=== PATIENT | male | born 1985 | race Caucasian/White ===

== ENCOUNTER 2016-09-22 11:31 | Emergency (ER) | payer SELFPAY ==
[~2016-09-22] VITALS: Ht 175.3 cm; Wt 104.0 kg
[~2016-09-22 11:31] MED LIST: BACT800T5 PO
[2016-09-22 11:39] VITALS: BP 147/93; PULSE 92; RESP 16; TEMP 98.7; O2SAT 100
--- NOTE | 2016-09-22 12:28 | PD ---
HPI Chief Complaint: Complaint Time Seen by Provider: 12:27 (Page Callahan) Time Seen by Provider: 12:04 (Anthony Amanda MD) Travel History International Travel<30 days: No Contact w/Intl Traveler<30days: No Traveled to known affect area: No (Page Callahan) History of Present Illness HPI Patient is a 31-year-old male presenting to the emergency department for evaluation of a possible torn frenulum. Patient states he was having intercourse this morning, resulting in bleeding on the tip of his penis. He states it's sore, tender. He denies any other complaints at this time. (Page Callahan) [facility] Past Medical History Medical History: Denies Significant Hx (Page Callahan) Past Surgical History Eye Surgery: Yes (lazy eye correction) (Page Callahan) Social History Alcohol Use: Yes (occas.) Tobacco Use: No (denies recent use states hx of states quit) Substance Use: No (Page Callahan) Allergies-Medications (Allergen,Severity, Reaction): Coded Allergies: No Known Allergies (Unverified , 09/22/16) Reported Meds & Prescriptions Reported Meds & Active Scripts Active Lidocaine Topical (Lidocaine HCl) 2 % Jel 1 Applic TOPICAL BID PRN Nystatin Topical 100,000 unit/gm Oint 1 Applic TOPICAL Q12HR (Anthony Amanda MD) Review of Systems Except as stated in HPI: all other systems reviewed are Neg Musculoskeletal: Positive: Pain Skin: Positive Other (bleeding to tip of penis) (Page Callahan) Physical Exam Narrative GENERAL: Well-nourished, well-developed patient. SKIN: Warm and dry. HEAD: Normocephalic. EYES: No scleral icterus. No injection or drainage. NECK: Supple, trachea midline. No JVD or lymphadenopathy. CARDIOVASCULAR: Regular rate and rhythm without murmurs, gallops, or rubs. RESPIRATORY: Breath sounds equal bilaterally. No accessory muscle use. GASTROINTESTINAL: Abdomen soft, non-tender, nondistended. MUSCULOSKELETAL: No cyanosis, or edema. GENITOURINARY: Uncircumcised, bleeding noted to the frenulum. Testes descended bilaterally without evidence of rotation. No urethral discharge. Foreskin retracts easily. BACK: Nontender without obvious deformity. No CVA tenderness. (Page Callahan) Data Data Last Documented VS Vital Signs Date Time Temp Pulse Resp B/P Pulse Ox O2 Delivery O2 Flow Rate FiO2 09/22/16 11:39 98.7 92 16 147/93 100 (Anthony Amanda MD) Orders Mandatory Outpatient Referral (09/22/16 12:56) (Anthony Amanda MD) [facility] Medical Decision Making Medical Screen Exam Complete: Yes Emergency Medical Condition: Yes Interpretation(s) Vital Signs Date Time Temp Pulse Resp B/P Pulse Ox O2 Delivery O2 Flow Rate FiO2 09/22/16 11:39 98.7 92 16 147/93 100 Differential Diagnosis Torn frenulum versus STD versus urinary tract infection versus other Narrative Course Patient is a 31-year-old male presenting to emergency department for evaluation of a torn frenulum. Injury occurred as result of intercourse this morning. Patient was seen and evaluated by my attending physician recommended lidocaine topically for pain as well as nystatin cream. Mandatory referral was made for urology follow-up. Patient was encouraged return to emergency department for any new or worsening symptoms. Patient stable for discharge. (Page Callahan) Emergency Medical Condition: Yes (Anthony Amanda MD) Diagnosis Primary Impression: Penis symptom or sign Referrals: Urologist Patient Instructions: General Instructions Additional Instructions: Follow-up with urologist Use medications as directed Returned to emergency department for any new or worsening symptoms Med/Other Pt SpecificInfo: Prescription(s) given (Page Callahan) Scripts Lidocaine Topical 2 % Jel1 Applic TOPICAL BID PRN (PAIN SCALE 1 TO 10) #15 GM Ref 0 Prov:Page Callahan 09/22/16 Nystatin Topical 100,000 unit/gm Oint1 Applic TOPICAL Q12HR #15 GM Ref 0 Prov:Page Callahan 09/22/16 Disposition: 01 DISCHARGE HOME Condition: Stable Page Callahan Sep 22, 2016 12:28 Anthony Amanda MD Sep 22, 2016 13:25
[2016-09-22] MEDS ORDERED: NYST100084 TOPICAL (12:55)
[2016-09-22] MEDS ORDERED: LIDO2GEL11 TOPICAL (12:55)
--- NOTE | 2016-09-22 17:47 | PD ---
Data Data Last Documented VS Vital Signs Date Time Temp Pulse Resp B/P Pulse Ox O2 Delivery O2 Flow Rate FiO2 09/22/16 11:39 98.7 92 16 147/93 100 Orders Mandatory Outpatient Referral (09/22/16 12:56) [facility] Supervised Visit with BERRY: Yes Narrative Course Patient seen and examined by me in addition to Page BINGHAM. Patient has unimpressive abrasion to the frenulum of the penis. There is an uncircumcised penis with foul smelling shmegma as well. No cellulitis appreciated. Discussed with patient symptomatic control and treatment. Discussed follow up with a urologist at his discretion and return to ED criteria. Stable for discharge. Diagnosis Primary Impression: Penis symptom or sign Referrals: Urologist call for appointment Patient Instructions: General Instructions Departure Forms: Tests/Procedures Additional Instruction: Follow-up with urologist Use medications as directed Returned to emergency department for any new or worsening symptoms Scripts Lidocaine Topical 2 % Jel1 Applic TOPICAL BID PRN (PAIN SCALE 1 TO 10) #15 GM Ref 0 Prov:Page Callahan 09/22/16 Nystatin Topical 100,000 unit/gm Oint1 Applic TOPICAL Q12HR #15 GM Ref 0 Prov:Page Callahan 09/22/16 Disposition: 01 DISCHARGE HOME Condition: Stable Anthony Amanda MD Sep 22, 2016 17:47
== END 2016-09-22 13:10 | disposition home or self-care (01) ==
LOC: PHED 11:31 → PHEFT 13:10
DX: S31.21XA Laceration without foreign body of penis, initial encounter (principal); X58.XXXA Exposure to other specified factors, initial encounter; Y93.89 Activity, other specified
CPT/HCPCS: 99283

== ENCOUNTER 2016-11-09 01:00 | Emergency (ER) | payer SELFPAY ==
[~2016-11-09] VITALS: Ht 175.3 cm; Wt 103.0 kg
[~2016-11-09 01:00] MED LIST changes: -BACT800T5 PO; +LIDO2GEL11 TOPICAL; +NYST100084 TOPICAL
[2016-11-09 01:10] VITALS: BP 159/81; PULSE 81; RESP 18; TEMP 98.2; O2SAT 97
[2016-11-09 01:43] LABS: AUTOMATED NEUTROPHIL # 11.3 TH/MM3 (1.8-7.7); BASOPHIL # 0.1 TH/MM3 (0-0.2); BASOPHIL % 0.6 % (0.0-2.0); EOSINOPHIL # 0.1 TH/MM3 (0-0.4); EOSINOPHIL % 0.8 % (0.0-4.0); HEMATOCRIT 42.2 % (39.0-51.0); HEMO FLAGS DIFF FINAL; LYMPH % 15.8 % (9.0-44.0); LYMPHOCYTE # 2.2 TH/MM3 (1.0-4.8); MEAN CELL VOLUME 82.4 FL (80.0-100.0); MEAN CORPUSCULAR HEMOGLOBIN 28.2 PG (27.0-34.0); MEAN CORPUSCULAR HGB CONC 34.2 % (32.0-36.0); MONO % 3.6 % (0.0-8.0); NEUT % 79.2 % (16.0-70.0); PLATELET COUNT 259 TH/MM3 (150-450); RED BLOOD COUNT 5.13 MIL/MM3 (4.50-5.90); RED CELL DISTRIBUTION WIDTH 13.3 % (11.6-17.2); WHITE BLOOD COUNT 14.2 TH/MM3 (4.0-11.0)
[2016-11-09 02:03] LABS: ALKALINE PHOSPHATASE 83 U/L (45-117); TOTAL BILIRUBIN ADULT 0.3 MG/DL (0.2-1.0)
[2016-11-09 02:10] LABS: ALT (GPT) 31 U/L (12-78); ANION GAP 8 MEQ/L (5-15); AST (GOT) 37 U/L (15-37); BICARBONATE 24.9 MEQ/L (21.0-32.0); BLOOD UREA NITROGEN 17 MG/DL (7-18); CHLORIDE 104 MEQ/L (98-107); GLOMERULAR FILTRATION RATE 90 ML/MIN (>89); POTASSIUM 3.2 MEQ/L (3.5-5.1); SODIUM (NA) 137 MEQ/L (136-145)
--- NOTE | 2016-11-09 02:10 | RADRPT ---
EXAM DATE/TIME: 11/09/2016 01:45 [facility] COMPARISON: No previous studies available for comparison. INDICATIONS : Abdominal pain. MEDICAL HISTORY : None. SURGICAL HISTORY : None. ENCOUNTER: Initial ACUITY: 1 day PAIN SCORE: 0/10 LOCATION: Bilateral chest FINDINGS: A single view of the chest demonstrates the lungs to be symmetrically aerated without evidence of mas s, infiltrate or effusion. The cardiomediastinal contours are unremarkable. Osseous structures are intact. CONCLUSION: No acute disease. Elvis Cazares MD on November 09, 2016 at 2:08 Board Certified Radiologist. This report was verified electronically.
[2016-11-09] MEDS ORDERED: IOHEXOL 350 MG/ML 10 ML VIAL (for RAD DIAG) IV ONE (02:37)
[2016-11-09 02:57] LABS: BLOOD, URINE NEG (NEG); GLUCOSE,URINE NEG (NEG); KETONE, URINE NEG (NEG); NITRITE,URINE NEG (NEG); PH, URINE 6.5 (5.0-8.5); URINE COLOR LIGHT-YELLOW (YELLW/STRAW)
[2016-11-09 03:02] LABS: COMMENT (UR) CULT NOT INDICATED; CULTURE IF INDICATED CULT NOT INDICATED
[2016-11-09] MEDS ORDERED: POTASSIUM CHLORIDE 20 MEQ CONTROLLED RELEASE TAB PO ONE (03:15)
[2016-11-09] MEDS ORDERED: ONDANSETRON HCL 4 MG/2 ML VIAL IV ONE (03:15)
[2016-11-09] MEDS ORDERED: SODIUM CHLOR 0.9% 1000 ML INJ 1,000 ML IV ONE (03:15)
--- NOTE | 2016-11-09 03:29 | RADRPT ---
EXAM DATE/TIME: 11/09/2016 02:35 [facility] COMPARISON: No previous studies available for comparison. INDICATIONS : Lower abdominal pain starting tonight. IV CONTRAST: 83 cc Omnipaque 350 (iohexol) IV ORAL CONTRAST: No oral contrast ingested. RADIATION DOSE: 14.48 CTDIvol (mGy) MEDICAL HISTORY : None SURGICAL HISTORY : None. ENCOUNTER: Initial ACUITY: 1 day PAIN SCALE: 7/10 LOCATION: abdomen TECHNIQUE: Volumetric scanning of the abdomen and pelvis was performed. Using automated exposure control and ad justment of the mA and/or kV according to patient size, radiation dose was kept as low as reasonably achievable to obtain optimal diagnostic quality images. FINDINGS: LOWER LUNGS: The visualized lower lungs are clear. LIVER: Homogeneous density without lesion. There is no dilation of the biliary tree. There are small calcif ied gallstones. SPLEEN: Normal size without lesion. PANCREAS: Within normal limits. KIDNEYS: Normal in size and shape. There is no mass, stone or hydronephrosis. ADRENAL GLANDS: Within normal limits. VASCULAR: There is no aortic aneurysm. BOWEL/MESENTERY: The stomach, small bowel, and colon demonstrate no acute abnormality. There is nondistention of the d escending and sigmoid colon. There is no free intraperitoneal air or fluid. ABDOMINAL WALL: Within normal limits. RETROPERITONEUM: There is no lymphadenopathy. BLADDER: No wall thickening or mass. REPRODUCTIVE: Within normal limits. INGUINAL: There is no lymphadenopathy or hernia. MUSCULOSKELETAL: Within normal limits for patient age. CONCLUSION: 1. Cholelithiasis. 2. No acute inflammatory process. Elvis Cazares MD on November 09, 2016 at 3:25 Board Certified Radiologist. This report was verified electronically.
--- NOTE | 2016-11-09 03:37 | PD ---
HPI Chief Complaint: Abdominal Pain Time Seen by Provider: 01:28 Travel History International Travel<30 days: No Contact w/Intl Traveler<30days: No Traveled to known affect area: No History of Present Illness HPI The patient is a 31 year old male who presents to the [facility] emergency department with a history of abdominal pain that began when he was lying down trying to go to bed. He reports that it began at the lower portion of the abdomen and then radiated up to underneath the rib cage bilaterally. He reports that it hurts worse to take a deep breath. He reports that it hurts worse to straighten up to stand. He denies having any nausea, vomiting, or diarrhea associated with this. He reports that his last bowel movement was at 10 PM and normal. He denies having any blood in his stool or black or tarry stools. He reports that the pain has improved since arriving in the emergency department. He denies having any chest pain, chest pressure, or shortness of breath. He denies having any cough or congestion. He denies having any dysuria , hematuria, urinary urgency, or frequency. He denies having any sick contacts. He denies having any recent acid reflux or heartburn. The patient denies any recent fevers, cough, congestion, neck pain, or neurologic symptoms. [facility] Past Medical History Narrative Medical The patient's past medical history is reportedly none. Medical History: Denies Significant Hx Tetanus Vaccination: > 5 Years Influenza Vaccination: No Past Surgical History Narrative Surgical The patient's past surgical history is significant for strabismus surgery. Eye Surgery: Yes (lazy eye correction) Social History Alcohol Use: Yes (occas.) Tobacco Use: No (denies recent use states hx of states quit) Substance Use: No Allergies-Medications (Allergen,Severity, Reaction): Coded Allergies: No Known Allergies (Unverified , 11/09/16) Reported Meds & Prescriptions Reported Meds & Active Scripts Active No Active Prescriptions or Reported Medications Review of Systems Except as stated in HPI: all other systems reviewed are Neg General / Constitutional: No: Fever Eyes: No: Visual changes HENT: No: Headaches, Congestion Cardiovascular: No: Chest Pain or Discomfort, Dyspnea on exertion Respiratory: No: Cough, Shortness of Breath Gastrointestinal: Positive: Abdominal Pain, No: Nausea, Vomiting, Diarrhea, Constipation, Changes in Bowel Habits, Indigestion Genitourinary: No: Dysuria Musculoskeletal: No: Pain Skin: No Rash Neurologic: No: Weakness Psychiatric: No: Depression Endocrine: No: Polydipsia Hematologic/Lymphatic: No: Easy Bruising Physical Exam Narrative General: The patient is a well-developed well-nourished male in no acute distress. Head and Neck exam: Head is normocephalic atraumatic. Eyes: EOMI, pupils are equal round and reactive to light. Nose: Midline septum with pink mucous membranes Mouth: Dentition unremarkable. Moist mucus membranes. Posterior oropharynx is not erythematous. No tonsillar hypertrophy. Uvula midline. Airway patent. Neck: No palpable lymphadenopathy. No nuchal rigidity. No thyromegaly. Cardiovascular: Regular rate and rhythm without murmurs, gallops, or rubs. Lungs: Clear to auscultation bilaterally. No wheezes, rhonchi, or rales. Abdomen: Soft, without tenderness to palpation in all 4 quadrants of the abdomen. No guarding, rebound, or rigidity. Normal bowel sounds are audible. No tenderness on palpation of McBurney's point. Negative Turner's sign. The patient reports that the pain has improved since arriving in the emergency department. Extremities: No clubbing, cyanosis, or edema. No calf tenderness on palpation. Back: No spinous process tenderness to palpation. No costovertebral angle tenderness to palpation. Neurologic Exam: Grossly nonfocal. Skin Exam: No rash noted. Intact skin that is warm and dry. Data Data Last Documented VS Vital Signs Date Time Temp Pulse Resp B/P Pulse Ox O2 Delivery O2 Flow Rate FiO2 11/09/16 01:10 98.2 81 18 159/81 97 Orders Complete Blood Count With Diff (11/09/16:28) Comprehensive Metabolic Panel (11/09/16:28) C-Reactive Protein (Crp) (11/09/16:28) Lipase (11/09/16:28) Urinalysis - C+S If Indicated (11/09/16:28) Westergren Sedimentation Rate (11/09/16:28) Chest, Single Ap (11/09/16:28) Ct Abd/Pel W Iv Contrast(Rout) (11/09/16:28) Iv Access Insert/Monitor (3/27/17 01:28) Ecg Monitoring (11/09/16 01:28) Oximetry (11/09/16 01:28) Iohexol 350 Inj (Omnipaque 350 Inj) (11/09/16 02:37) Sodium Chlor 0.9% 1000 Ml Inj (Ns 1000 M (11/09/16 03:15) Ondansetron Inj (Zofran Inj) (11/09/16 03:15) Potassium Chloride (Kcl) (11/09/16 03:15) Labs Laboratory Tests Test 11/09/16 11/09/16 01:15 02:40 White Blood Count 14.2 TH/MM3 Red Blood Count 5.13 MIL/MM3 Hemoglobin 14.4 GM/DL Hematocrit 42.2 % Mean Corpuscular Volume 82.4 FL Mean Corpuscular Hemoglobin 28.2 PG Mean Corpuscular Hemoglobin 34.2 % Concent Red Cell Distribution Width 13.3 % Platelet Count 259 TH/MM3 Mean Platelet Volume 8.5 FL Neutrophils (%) (Auto) 79.2 % Lymphocytes (%) (Auto) 15.8 % Monocytes (%) (Auto) 3.6 % Eosinophils (%) (Auto) 0.8 % Basophils (%) (Auto) 0.6 % Neutrophils # (Auto) 11.3 TH/MM3 Lymphocytes # (Auto) 2.2 TH/MM3 Monocytes # (Auto) 0.5 TH/MM3 Eosinophils # (Auto) 0.1 TH/MM3 Basophils # (Auto) 0.1 TH/MM3 CBC Comment DIFF FINAL Differential Comment Erythrocyte Sedimentation Rate 2 mm/hr Sodium Level 137 MEQ/L Potassium Level 3.2 MEQ/L Chloride Level 104 MEQ/L Carbon Dioxide Level 24.9 MEQ/L Anion Gap 8 MEQ/L Blood Urea Nitrogen 17 MG/DL Creatinine 0.97 MG/DL Estimat Glomerular Filtration 90 ML/MIN Rate Random Glucose 131 MG/DL Calcium Level 8.6 MG/DL Total Bilirubin 0.3 MG/DL Aspartate Amino Transf 37 U/L (AST/SGOT) Alanine Aminotransferase 31 U/L (ALT/SGPT) Alkaline Phosphatase 83 U/L C-Reactive Protein 0.60 MG/DL Total Protein 7.1 GM/DL Albumin 4.0 GM/DL Lipase 284 U/L Urine Color LIGHT-YELLOW Urine Turbidity CLEAR Urine pH 6.5 Urine Specific [place] 1.015 Urine Protein NEG mg/dL Urine Glucose (UA) NEG mg/dL Urine Ketones NEG mg/dL Urine Occult Blood NEG Urine Nitrite NEG Urine Bilirubin NEG Urine Urobilinogen LESS THAN 2.0 MG/DL Urine Leukocyte Esterase NEG Urine RBC LESS THAN 1 /hpf Urine WBC 1 /hpf Microscopic Urinalysis Comment CULT NOT INDICATED MDM Medical Decision Making Medical Screen Exam Complete: Yes Emergency Medical Condition: Yes Medical Record Reviewed: Yes Differential Diagnosis Colonic spasms, versus colitis, versus gastroenteritis, versus viral syndrome, versus acute pancreatitis, versus biliary colic, versus kidney stone Narrative Course During the course of the patients emergency department visit, the patients history, examination, and differential diagnosis were reviewed with the patient. The patient had IV access obtained and blood work sent for analysis. The patient was placed on a iv therapy nurse with oximetry and blood pressure monitoring. The patient was provided normal saline 1 L IV fluid bolus, Zofran 4 mg IV 1, potassium 21 by mouth times one 1 mild hypokalemia was noted on laboratory studies. The patients laboratory studies were reviewed and remarkable for a CBC that shows a white count of 14.2, hemoglobin 14.4, platelets 259 with 79.2 neutrophils, sedimentation rate is 2, CMP is remarkable for potassium of 3.2, glucose 131, C-reactive protein 0.60, lipase, urinalysis is within normal limits. Radiology studies were reviewed and remarkable for a chest x-ray that shows no acute abnormality. CT scan of the abdomen and pelvis shows cholelithiasis, no acute inflammatory process. The patient was instructed regarding his CT scan findings. The patient's symptoms could be related to biliary colic as the symptoms seemed to have resolved. The patient will be given the name of the general surgeon for follow-up, . The patient is resting comfortably and feels better, is alert and in no distress. The patients results and examination findings were discussed with the patient. The repeat examination is unremarkable and benign. The history, exam, diagnostic testing, and current condition do not suggest any significant pathology to warrant further testing, continued ED treatment, admission, or surgical evaluation at this point. The vital signs have been stable. The patient does not have uncontrollable pain, intractable vomiting, or other significant symptoms. The patient's condition is stable and appropriate for discharge. The patient will pursue further outpatient evaluation with a primary care physician or other designated or consulting physician as indicated in the discharge instructions. The patient expressed understanding and was agreeable with this plan. Diagnosis Primary Impression: Abdominal pain Qualified Code: R10.84 - Generalized abdominal pain Additional Impression: Cholelithiasis Qualified Code: K80.20 - Calculus of gallbladder without cholecystitis without obstruction Referrals: Mason Pruitt MD 3 days Patient Instructions: Abdominal Pain (ED), Biliary Colic (ED), General Instructions Med/Other Pt SpecificInfo: No Meds Exist/No RX given Scripts No Active Prescriptions or Reported Meds Disposition: 01 DISCHARGE HOME Condition: Michelle Etienne MD Nov 09, 2016 03:37
== END 2016-11-09 04:47 | disposition home or self-care (01) ==
LOC: NEPE 01:00
DX: K80.20 Calculus of gallbladder without cholecystitis without obstruction (principal)
CPT/HCPCS: 71010; 74177; 80053; 81001; 83690; 85025; 85652; 86140; 96374; 99284; J2405; J7030; Q9967

== ENCOUNTER 2016-11-11 20:41 | Inpatient (IN) | payer SELFPAY ==
[~2016-11-11] VITALS: Ht 175.3 cm; Wt 100.9 kg
[2016-11-11 20:43] VITALS: BP 132/73; PULSE 73; RESP 16; TEMP 97.8; O2SAT 100
[2016-11-11 22:51] LABS: AUTOMATED NEUTROPHIL # 6.2 TH/MM3 (1.8-7.7); BASOPHIL # 0.1 TH/MM3 (0-0.2); BASOPHIL % 0.8 % (0.0-2.0); EOSINOPHIL # 0.1 TH/MM3 (0-0.4); HEMATOCRIT 44.2 % (39.0-51.0); HEMO FLAGS DIFF FINAL; LYMPH % 16.9 % (9.0-44.0); LYMPHOCYTE # 1.4 TH/MM3 (1.0-4.8); MEAN CELL VOLUME 83.4 FL (80.0-100.0); MEAN CORPUSCULAR HEMOGLOBIN 28.4 PG (27.0-34.0); MONO % 5.2 % (0.0-8.0); NEUT % 76.1 % (16.0-70.0); PLATELET COUNT 267 TH/MM3 (150-450); RED CELL DISTRIBUTION WIDTH 13.8 % (11.6-17.2); WHITE BLOOD COUNT 8.1 TH/MM3 (4.0-11.0)
[2016-11-11 23:09] LABS: BLOOD, URINE NEG (NEG); COMMENT (UR) CULT NOT INDICATED; CULTURE IF INDICATED CULT NOT INDICATED; GLUCOSE,URINE NEG (NEG); KETONE, URINE NEG (NEG); NITRITE,URINE NEG (NEG); PH, URINE 6.5 (5.0-8.5); URINE COLOR DARK-YELLOW (YELLW/STRAW)
[2016-11-11 23:22] LABS: ALKALINE PHOSPHATASE 241 U/L (45-117); ALT (GPT) 438 U/L (12-78); ANION GAP 5 MEQ/L (5-15); AST (GOT) 178 U/L (15-37); BLOOD UREA NITROGEN 8 MG/DL (7-18); CHLORIDE 102 MEQ/L (98-107); GLOMERULAR FILTRATION RATE 104 ML/MIN (>89); SODIUM (NA) 137 MEQ/L (136-145); TOTAL BILIRUBIN ADULT 5.8 MG/DL (0.2-1.0)
[2016-11-12] VITALS (7 sets, daily range): BP systolic 120–139; BP diastolic 60–80; PULSE 63–83; RESP 14–20; TEMP 97.6–98.2; O2SAT 96–99
[2016-11-12] MEDS ORDERED: SODIUM CHLOR 0.9% 1000 ML INJ 1,000 ML IV SCH (00:02)
[2016-11-12] MEDS ORDERED: ONDANSETRON HCL 4 MG/2 ML VIAL IVP ONE (00:15)
[2016-11-12] MEDS ORDERED: PIPERACIL-TAZO 3.375 GM PREMIX 50 ML IV ONE (00:15)
[2016-11-12] MEDS ORDERED: HYDROmorphone HCL PF 1 MG/ML VIAL IVS ONE (00:15)
[2016-11-12] MEDS ORDERED: SODIUM CHLORIDE 0.9% FLUSH 10 ML FLUSH IV FLUSH PRN (00:15)
--- NOTE | 2016-11-12 00:30 | PD ---
HPI Chief Complaint: Abdominal Pain Time Seen by Provider: 23:46 Travel History International Travel<30 days: No Contact w/Intl Traveler<30days: No Traveled to known affect area: No History of Present Illness HPI 31 yo Male arrives complaining of right upper quadrant and epigastric abdominal pain which started about 15 hours or so prior to ER arrival. Similar pain has been noticed in the past and was diagnosed as cholelithiasis. The patient has had no nausea vomiting or fever. He does note pain in the right abdomen is slightly worse with breathing. Last oral intake was about 8 hours prior to ER arrival. After eating pain is worse. He notes that movement worsens the pain. He has no past medical history her past surgical history. He denies drug allergy. He also noted dark urine today. [facility] Past Medical History Medical History: Denies Significant Hx Past Surgical History Surgical History: No Previous Surgery Eye Surgery: Yes (lazy eye correction) Social History Alcohol Use: Yes (occas.) Tobacco Use: No (denies recent use states hx of states quit) Substance Use: No Allergies-Medications (Allergen,Severity, Reaction): Coded Allergies: No Known Allergies (Unverified , 11/11/16) Reported Meds & Prescriptions Reported Meds & Active Scripts Active No Active Prescriptions or Reported Medications Review of Systems Except as stated in HPI: all other systems reviewed are Neg General / Constitutional: No: Fever, Chills Gastrointestinal: Positive: Abdominal Pain, No: Vomiting, Diarrhea Physical Exam Narrative GENERAL: 31-year-old male, well-nourished well-developed pleasant SKIN: Focused skin assessment warm/dry. HEAD: Atraumatic. Normocephalic. EYES: Mild scleral icterus noted. ENT: No nasal bleeding or discharge. Mucous membranes pink and moist. NECK: Trachea midline. No JVD. CARDIOVASCULAR: Regular rate and rhythm. No murmur appreciated. RESPIRATORY: No accessory muscle use. Clear to auscultation. Breath sounds equal bilaterally. GASTROINTESTINAL: Soft. Positive Turner sign. No tenderness at McBurney's point. NEUROLOGIC: No obvious cranial nerve deficits. Motor grossly within normal limits. Normal speech. PSYCHIATRIC: Appropriate mood and affect; insight and judgment normal. Data Data Last Documented VS Vital Signs Date Time Temp Pulse Resp B/P Pulse Ox O2 Delivery O2 Flow Rate FiO2 11/11/16 20:43 97.8 73 16 132/73 100 Room Air Vital signs reviewed Orders Complete Blood Count With Diff (11/11/16 21:19) Comprehensive Metabolic Panel (11/11/16 21:19) Urinalysis - C+S If Indicated (11/11/16 21:19) Lipase (11/11/16 21:19) Us Abdomen Gallbladder (11/12/16 ) Iv Access Insert/Monitor (11/12/16 00:02) Ecg Monitoring (11/12/16 00:02) Oximetry (11/12/16 00:02) Ondansetron Inj (Zofran Inj) (11/12/16 00:15) Sodium Chlor 0.9% 1000 Ml Inj (Ns 1000 M (11/12/16 00:02) Sodium Chloride 0.9% Flush (Ns Flush) (11/12/16 00:15) Piperacil-Tazo 3.375 Gm Premix (Zosyn 3. (11/12/16 00:15) Hydromorphone Pf Inj (Dilaudid Pf Inj) (11/12/16 00:15) Admit Order (Ed Use Only) (11/12/16 ) Consult Gastroenterology (11/12/16 ) Admit To Inpatient (11/12/16 ) Vital Signs (Adult) Q4H (11/12/16 01:28) Activity Bed Rest With Brp (11/12/16 01:28) Diet Npo (11/12/16 Breakfast) Sodium Chlor 0.9% 1000 Ml Inj (Ns 1000 M (11/12/16 01:28) Sodium Chloride 0.9% Flush (Ns Flush) (11/12/16 09:00) Acetaminophen (Tylenol) (11/12/16 01:30) Ondansetron Inj (Zofran Inj) (11/12/16 01:30) Magnesium Hydroxide Liq (Milk Of Magnesi (11/12/16 01:30) Sennosides (Senokot) (11/12/16 01:30) Complete Blood Count With Diff (11/13/16 06:00) Hepatic Functional Panel (11/13/16 06:00) Scd Bilateral/Knee High TREVOR.BID (11/12/16 01:28) Naloxone Inj (Narcan Inj) (11/12/16 01:30) Inpatient Certification (11/12/16 ) Piperacil-Tazo 3.375 Gm Premix (Zosyn 3. (11/12/16 07:00) Labs Laboratory Tests Test 11/11/16 22:30 White Blood Count 8.1 TH/MM3 Red Blood Count 5.30 MIL/MM3 Hemoglobin 15.0 GM/DL Hematocrit 44.2 % Mean Corpuscular Volume 83.4 FL Mean Corpuscular Hemoglobin 28.4 PG Mean Corpuscular Hemoglobin 34.0 % Concent Red Cell Distribution Width 13.8 % Platelet Count 267 TH/MM3 Mean Platelet Volume 8.1 FL Neutrophils (%) (Auto) 76.1 % Lymphocytes (%) (Auto) 16.9 % Monocytes (%) (Auto) 5.2 % Eosinophils (%) (Auto) 1.0 % Basophils (%) (Auto) 0.8 % Neutrophils # (Auto) 6.2 TH/MM3 Lymphocytes # (Auto) 1.4 TH/MM3 Monocytes # (Auto) 0.4 TH/MM3 Eosinophils # (Auto) 0.1 TH/MM3 Basophils # (Auto) 0.1 TH/MM3 CBC Comment DIFF FINAL Differential Comment Urine Color DARK-YELLOW Urine Turbidity CLEAR Urine pH 6.5 Urine Specific [place] 1.007 Urine Protein NEG mg/dL Urine Glucose (UA) NEG mg/dL Urine Ketones NEG mg/dL Urine Occult Blood NEG Urine Nitrite NEG Urine Bilirubin SMALL Urine Urobilinogen LESS THAN 2.0 MG/DL Urine Leukocyte Esterase NEG Urine RBC LESS THAN 1 /hpf Microscopic Urinalysis Comment CULT NOT INDICATED Sodium Level 137 MEQ/L Potassium Level 4.0 MEQ/L Chloride Level 102 MEQ/L Carbon Dioxide Level 30.0 MEQ/L Anion Gap 5 MEQ/L Blood Urea Nitrogen 8 MG/DL Creatinine 0.86 MG/DL Estimat Glomerular Filtration 104 ML/MIN Rate Random Glucose 96 MG/DL Calcium Level 9.3 MG/DL Total Bilirubin 5.8 MG/DL Aspartate Amino Transf 178 U/L (AST/SGOT) Alanine Aminotransferase 438 U/L (ALT/SGPT) Alkaline Phosphatase 241 U/L Total Protein 7.6 GM/DL Albumin 4.0 GM/DL Lipase 260 U/L [facility] Medical Decision Making Medical Screen Exam Complete: Yes Emergency Medical Condition: Yes Differential Diagnosis Constipation, Gastritis, Acute Cholecystitis, Biliary Colic, Pancreatitis, ANDERSEN , Hepatitis, Bowel Obstruction, Cystitis, Mesenteric Ischemia, AAA, Appendicitis , Renal Stone/Hydronephrosis, GERD, perforated viscous Narrative Course CBC & BMP Diagram 11/11/16 22:30 Total bilirubin 5.8 AST 178 ALT 438 Alkaline phosphatase 241 Lipase normal Urinalysis reveals urine bilirubin The patient has hyperbilirubinemia with elevation of the LFTs and gallbladder stones. Last 24 hours Impressions Gall Bladder Ultrasound 11/12/16 0000 Signed Impressions: Service Date/Time: October 00:17 - CONCLUSION: 1. Common bile duct mildly prominent at 8 mm but without evidence for choledocholithiasis. There is some sludge in the gallbladder neck. No discrete gallstones. No gallbladder wall thickening. No free fluid. Wolfgang Palma MD IV fluids and antibiotics initiated. The patient will be admitted for further evaluation. Discussed with Dr. Menendez for [facility]. Consult to gastroenterology placed. Zosyn started. Diagnosis Primary Impression: Hyperbilirubinemia Additional Impression: Elevated LFTs Admitting Information Admitting Physician Requests: Admit Scripts No Active Prescriptions or Reported Meds Cem Petersen MD Nov 12, 2016 00:30
--- NOTE | 2016-11-12 01:12 | RADRPT ---
EXAM DATE/TIME: 11/12/2016 00:17 [facility] COMPARISON: No previous studies available for comparison. INDICATIONS : Right upper quadrant pain. MEDICAL HISTORY : Right upper quadrant pain.. SURGICAL HISTORY : Lazy eye correction. ENCOUNTER: Initial ACUITY: 2 days PAIN SCORE: 7/10 LOCATION: Right upper quadrant MEASUREMENTS: LIVER: 15.6 cm length COMMON DUCT: 8 mm RIGHT KIDNEY: 11.9 x 5.8 x 5.5 cm FINDINGS: LIVER: Normal echotexture without focal lesion or ductal dilatation. COMMON DUCT: No intraluminal mass or stone visualized. GALLBLADDER: Contains no stones, demonstrates no wall thickening or pericholecystic fluid. Sludge present in gallb ladder neck. PANCREAS: Not clearly visualized. RIGHT KIDNEY: No evidence of hydronephrosis, stone, or mass. CONCLUSION: 1. Common bile duct mildly prominent at 8 mm but without evidence for choledocholithiasis. There is s ome sludge in the gallbladder neck. No discrete gallstones. No gallbladder wall thickening. No free f luid. Wolfgang Palma MD on November 12, 2016 at 1:07 Board Certified Radiologist. This report was verified electronically.
[2016-11-12] MEDS ORDERED: MAGNESIUM HYDROXIDE SUSP 30 ML CUP PO PRN (01:30)
[2016-11-12] MEDS ORDERED: NALOXONE HCL 0.4 MG/ML AMP IV PRN (01:30)
[2016-11-12] MEDS ORDERED: ACETAMINOPHEN 325 MG TAB PO PRN (01:30)
[2016-11-12] MEDS ORDERED: SENNOSIDES 8.6 MG TAB PO PRN (01:30)
[2016-11-12] MEDS ORDERED: ONDANSETRON HCL 4 MG/2 ML VIAL IVP PRN (01:30)
[2016-11-12 02:29] LABS: AMPHETAMINE, URINE NEG (NEG); BARBITURATES, URINE NEG (NEG); COCAINE, URINE NEG (NEG)
[2016-11-12] MEDS: SODIUM CHLOR 0.9% 1000 ML INJ 1,000 ML IV SCH ×3 (02:37→21:28)
--- NOTE | 2016-11-12 05:45 | HHI.HP ---
[facility] No Primary Care Physician Admission Diagnosis Hyperbiliribinemia, Elevated LFTs Diagnoses: Chief Complaint: abdominal pain Travel History International Travel<30 Days: No Contact w/Intl Traveler <30 Da: No Traveled to Known Affected Are: No History of Present Illness 31 year old with no medical history presented to the Ed with complaints of abdominal pain for 2 days. Patient states on Wednesday he began to have intermittent sharp cramping in his mid abdominal region with associated nausea. At first he thought it was gas but then it continued to increase in intensity. Patient denies eating a fatty meal, states he only was eating toast this morning. He denies any fever, chills, chest pain or sob. He also denies any vomiting, diarrhea or constipation. Patient does not have a PCP. Review of Systems Constitutional: DENIES: Fever, Chills Ears, nose, mouth, throat: DENIES: Throat pain Respiratory: DENIES: Cough, Sputum production, Shortness of breath Cardiovascular: DENIES: Chest pain, Lower Extremity Edema Gastrointestinal: COMPLAINS OF: Abdominal pain, Nausea, DENIES: Constipation, Diarrhea, Vomiting Genitourinary: DENIES: Hematuria, Dysuria Musculoskeletal: DENIES: Joint pain, Back pain, Neck pain Past Family Social History Past Medical History Patient denies any medical history Past Surgical History Eye surgery Reported Medications Reported Meds & Active Scripts Active No Active Prescriptions or Reported Medications Allergies: Coded Allergies: No Known Allergies (Unverified , 11/11/16) Active Ordered Medications Current Medications Medications (Trade) Dose Ordered Sig/Brad Route Start Time Stop Time Status Last Admin Sodium Chloride 2 ml 2 ml UNSCH PRN IV FLUSH 11/12/16 00:15 (NS 1000 ml Inj) 1,000 ml @ 100 mls/hr Q10H IV 11/12/16 01:28 11/12/16 02:37 (NS Flush) 2 ml BID IV FLUSH 11/12/16 09:00 (Tylenol) 650 mg Q4H PRN PO 11/12/16 01:30 (Zofran Inj) 4 mg Q6H PRN IVP 11/12/16 01:30 (Milk Of Magnesia Liq) 30 ml Q12H PRN PO 11/12/16 01:30 (Senokot) 17.2 mg Q12H PRN PO 11/12/16 01:30 Naloxone HCl 0.4 mg 0.4 mg UNSCH PRN IV 11/12/16 01:30 (Zosyn 3.375 Gm Premix) 50 ml @ 100 mls/hr Q6H IV 11/12/16 07:00 Family History Aunt: DM Social History Tobacco use: quit 3 yrs ago, prior a few cigarettes for one day Alcohol use: started drinking wine one week ago Illicit drug use: Denies Physical Exam Vital Signs Vital Signs Date Time Temp Pulse Resp B/P Pulse Ox O2 Delivery O2 Flow Rate FiO2 11/12/16 03:40 63 18 120/60 99 Room Air 11/12/16 01:10 98 Room Air 11/11/16 20:43 97.8 73 16 132/73 100 Room Air Physical Exam GENERAL: This is a well-nourished, well-developed patient, in no apparent distress. SKIN: No rashes, ecchymoses or lesions. Cool and dry. HEAD: Atraumatic. Normocephalic. No temporal or scalp tenderness. EYES: Pupils equal round and reactive. Extraocular motions intact. No scleral icterus. No injection or drainage. ENT: Nose without bleeding, purulent drainage or septal hematoma. NECK: Trachea midline. No JVD or lymphadenopathy. Supple, nontender, no meningeal signs. CARDIOVASCULAR: Regular rate and rhythm without murmurs, gallops, or rubs. RESPIRATORY: Clear to auscultation. Breath sounds equal bilaterally. No wheezes , rales, or rhonchi. GASTROINTESTINAL: Abdomen soft, mid abdominal tender, nondistended. No hepato- splenomegaly, or palpable masses. No guarding. MUSCULOSKELETAL: Extremities without clubbing, cyanosis, or edema. No joint tenderness, effusion, or edema noted. No calf tenderness. NEUROLOGICAL: Awake and alert. Motor and sensory grossly within normal limits. Normal speech. Laboratory Laboratory Tests Test 11/11/16 22:30 White Blood Count 8.1 Red Blood Count 5.30 Hemoglobin 15.0 Hematocrit 44.2 Mean Corpuscular Volume 83.4 Mean Corpuscular Hemoglobin 28.4 Mean Corpuscular Hemoglobin 34.0 Concent Red Cell Distribution Width 13.8 Platelet Count 267 Mean Platelet Volume 8.1 Neutrophils (%) (Auto) 76.1 Lymphocytes (%) (Auto) 16.9 Monocytes (%) (Auto) 5.2 Eosinophils (%) (Auto) 1.0 Basophils (%) (Auto) 0.8 Neutrophils # (Auto) 6.2 Lymphocytes # (Auto) 1.4 Monocytes # (Auto) 0.4 Eosinophils # (Auto) 0.1 Basophils # (Auto) 0.1 CBC Comment DIFF FINAL Differential Comment Urine Color DARK-YELLOW Urine Turbidity CLEAR Urine pH 6.5 Urine Specific [place] 1.007 Urine Protein NEG Urine Glucose (UA) NEG Urine Ketones NEG Urine Occult Blood NEG Urine Nitrite NEG Urine Bilirubin SMALL Urine Urobilinogen LESS THAN 2.0 Urine Leukocyte Esterase NEG Urine RBC LESS THAN 1 Microscopic Urinalysis Comment CULT NOT INDICATED Sodium Level 137 Potassium Level 4.0 Chloride Level 102 Carbon Dioxide Level 30.0 Anion Gap 5 Blood Urea Nitrogen 8 Creatinine 0.86 Estimat Glomerular Filtration 104 Rate Random Glucose 96 Calcium Level 9.3 Total Bilirubin 5.8 Aspartate Amino Transf 178 (AST/SGOT) Alanine Aminotransferase 438 (ALT/SGPT) Alkaline Phosphatase 241 Total Protein 7.6 Albumin 4.0 Lipase 260 Urine Opiates Screen NEG Urine Barbiturates Screen NEG Urine Amphetamines Screen NEG Urine Benzodiazepines Screen NEG Urine Cocaine Screen NEG Urine Cannabinoids Screen NEG Result Diagram: 11/11/16 2230 11/11/16 2230 Imaging Last Impressions Gall Bladder Ultrasound 11/12/16 0000 Signed Impressions: Service Date/Time: October 00:17 - CONCLUSION: 1. Common bile duct mildly prominent at 8 mm but without evidence for choledocholithiasis. There is some sludge in the gallbladder neck. No discrete gallstones. No gallbladder wall thickening. No free fluid. Wolfgang Palma MD Assessment and Plan Problem List: (1) Elevated LFTs ICD Code: R94.5 Status: Acute (2) Hyperbilirubinemia ICD Code: E80.6 Status: Acute (3) Abdominal pain ICD Code: R10.9 Status: Acute Assessment and Plan 31 year old with no medical history presented to the Ed with complaints of abdominal pain for 2 days. Elevated LFTs/ Hyperbilirubinemia/ Abdominal pain Images: Abd CT shows Common bile duct mildly prominent at 8 mm but without evidence for choledocholithiasis. There is some sludge in the gallbladder neck. No discrete gallstones. No gallbladder wall thickening. No free fluid. -Consult GI -Supportive IVF -Antiemetics as needed -Hepatitis panel ordered -Zosyn IV -MRCP ordered Patient stable discussed with transmission specialist has distal common bile duct stone for ERCP DVT prophylaxis: SCDs Written by ZACHERY Montaño acting as scribe for Dr. Menendez on 11/12/16 at 0536 All or portions of this note were transcribed by scribe [ZACHERY Montaño,]. I, Dr. Jabari Menendez personally performed the history, physical exam, and medical decision making; and confirmed the accuracy of the information in the transcribed note. Authenticated by Dr. Jabari Menendez on 11/13/16 at 12:51. Code Status Full Code Discussed Condition With Patient, RN and ER physician Physician Certification 2 Midnight Certification Type: Admission for Inpatient Services Order for Inpatient Services The services are ordered in accordance with Medicare regulations or non- Medicare payer requirements, as applicable. In the case of services not specified as inpatient-only, they are appropriately provided as inpatient services in accordance with the 2-midnight benchmark. Estimated LOS (days): 3 days is the estimated time the patient will need to remain in the hospital, assuming treatment plan goals are met and no additional complications. Post-Hospital Plan: [place] Adia Lobato Nov 12, 2016 05:45 Jack Lopez MD Nov 13, 2016 10:09 Jabrai Menendez MD Nov 13, 2016 12:51
[2016-11-12] MEDS: PIPERACIL-TAZO 3.375 GM PREMIX 50 ML IV SCH ×3 (08:10→18:20)
--- NOTE | 2016-11-12 08:39 | PD.CONS ---
HPI History of Present Illness This is a 31 year old male who came to the ER for evaluation of abdominal pain. He was in his usual state of health up until Wednesday morning, when he had the sudden onset of severe epigastric pain that he describes as a pressure that radiated around both sides to his back. He denies any associated nausea, vomiting, fever, chills, diarrhea, or constipation. His pain was aggravated by any po intake. He did try Ibuprofen at home, but states this really didn't help. He went to the ER for evaluation and a CT scan of the abdomen and pelvis revealed cholelithiasis without biliary tree dilatation. He was given IVF and pain meds and he was discharged home. His symptoms did improve some, but worsened again yesterday and he reports that his urine became very dark and therefore he returned to the ER and was found to have elevated LFTs with a dilated CBD on US. GI was consulted for further evaluation. He denies any hx of liver disease and denies any prior hx of gallstones/gallbladder troubles before this past Wednesday. He does not drink ETOH. (Raven Olivares) [facility] Past Medical History Patient denies any medical history Past Surgical History Corrective eye surgery (Raven Olivares) Coded Allergies: No Known Allergies (Unverified , 11/11/16) Medications Allergies Coded Allergies Type Severity Reaction Last Updated Verified No Known Allergies 11/11/16 No Active Scripts Medications Dose Route/Sig Days Date Category No Active Prescriptions or Reported Medications Rx Family History Paternal aunt with DM Social History Tobacco use: quit 3 yrs ago, prior a few cigarettes per day Denies ETOH use Denies Illicit drug use. (Raven Olivares) Review of Systems Constitutional: DENIES: Fatigue, Fever, Weight loss, Chills, Change in appetite Respiratory: DENIES: Cough Cardiovascular: DENIES: Chest pain Gastrointestinal: COMPLAINS OF: Abdominal pain, DENIES: Black stools, Bloody stools, Constipation, Diarrhea, Nausea, Vomiting, Swelling of Abdomen, Heartburn , Hematemesis Musculoskeletal: COMPLAINS OF: Back pain Hematologic/lymphatic: DENIES: Bruising Neurologic: DENIES: Headache Psychiatric: DENIES: Confusion ROS dark urine (Raven Olivares) GI Exam Vitals I&O Vital Signs Date Time Temp Pulse Resp B/P Pulse Ox O2 Delivery O2 Flow Rate FiO2 11/12/16 03:40 63 18 120/60 99 Room Air 11/12/16 01:10 98 Room Air 11/11/16 20:43 97.8 73 16 132/73 100 Room Air Imaging Last Impressions Gall Bladder Ultrasound 11/12/16 0000 Signed Impressions: Service Date/Time: October 00:17 - CONCLUSION: 1. Common bile duct mildly prominent at 8 mm but without evidence for choledocholithiasis. There is some sludge in the gallbladder neck. No discrete gallstones. No gallbladder wall thickening. No free fluid. Wolfgang Palma MD Laboratory Test 11/11/16 22:30 White Blood Count 8.1 TH/MM3 Red Blood Count 5.30 MIL/MM3 Hemoglobin 15.0 GM/DL Hematocrit 44.2 % Mean Corpuscular Volume 83.4 FL Mean Corpuscular Hemoglobin 28.4 PG Mean Corpuscular Hemoglobin 34.0 % Concent Red Cell Distribution Width 13.8 % Platelet Count 267 TH/MM3 Mean Platelet Volume 8.1 FL Neutrophils (%) (Auto) 76.1 % Lymphocytes (%) (Auto) 16.9 % Monocytes (%) (Auto) 5.2 % Eosinophils (%) (Auto) 1.0 % Basophils (%) (Auto) 0.8 % Neutrophils # (Auto) 6.2 TH/MM3 Lymphocytes # (Auto) 1.4 TH/MM3 Monocytes # (Auto) 0.4 TH/MM3 Eosinophils # (Auto) 0.1 TH/MM3 Basophils # (Auto) 0.1 TH/MM3 CBC Comment DIFF FINAL Differential Comment Urine Color DARK-YELLOW Urine Turbidity CLEAR Urine pH 6.5 Urine Specific [place] 1.007 Urine Protein NEG mg/dL Urine Glucose (UA) NEG mg/dL Urine Ketones NEG mg/dL Urine Occult Blood NEG Urine Nitrite NEG Urine Bilirubin SMALL Urine Urobilinogen LESS THAN 2.0 MG/DL Urine Leukocyte Esterase NEG Urine RBC LESS THAN 1 /hpf Microscopic Urinalysis Comment CULT NOT INDICATED Sodium Level 137 MEQ/L Potassium Level 4.0 MEQ/L Chloride Level 102 MEQ/L Carbon Dioxide Level 30.0 MEQ/L Anion Gap 5 MEQ/L Blood Urea Nitrogen 8 MG/DL Creatinine 0.86 MG/DL Estimat Glomerular Filtration 104 ML/MIN Rate Random Glucose 96 MG/DL Calcium Level 9.3 MG/DL Total Bilirubin 5.8 MG/DL Aspartate Amino Transf 178 U/L (AST/SGOT) Alanine Aminotransferase 438 U/L (ALT/SGPT) Alkaline Phosphatase 241 U/L Total Protein 7.6 GM/DL Albumin 4.0 GM/DL Lipase 260 U/L Urine Opiates Screen NEG Urine Barbiturates Screen NEG Urine Amphetamines Screen NEG Urine Benzodiazepines Screen NEG Urine Cocaine Screen NEG Urine Cannabinoids Screen NEG Physical Examination HEENT: Normocephalic; atraumatic; mild jaundice. CHEST: Chest is clear to auscultation and percussion. CARDIAC: RRR. ABDOMEN: Soft, nondistended, epigastric tenderness-mild; no hepatosplenomegaly ; bowel sounds are present in all four quadrants. EXTREMITIES: No clubbing, cyanosis, or edema. SKIN: Normal; no rash; no jaundice. ELECTRICAL TRANSMISSION ENGINEER: No focal deficits; alert and oriented times three. (Raven Olivares) Assessment and Plan Plan ASSESSMENT: - Abdominal pain with hx of cholelithiasis and elevated LFTs with dilated CBD. Started having severe epigastric pain on Wednesday. He came to the ER and CT Scan abdomen and pelvis revealed cholelithiasis without biliary tree dilatation. He was given IVF and pain meds and he was discharged home. His symptoms did improve some, but worsened again yesterday and he reports that his urine became very dark and therefore he returned to the ER and was found to have elevated LFTs with a dilated CBD on US. Clinically, he is feeling much better today. There are no labs from this morning to compare yet, but he does note that his urine is become german teacher in color. ? Passed stone. Will get stat MRCP, repeat labs. - Elevated LFTs. Gall Bladder Ultrasound (11/12/16)---->1. Common bile duct mildly prominent at 8 mm but without evidence for choledocholithiasis. There is some sludge in the gallbladder neck. No discrete gallstones. No gallbladder wall thickening. No free fluid. Of note, he was found to have cholelithiasis on CT earlier in week. Clinically he is now doing better and his urine is german teacher. Suspect passed stone, but will check repeat labs and MRCP to be sure. Also will check hepatitis panel. PLAN: - NPO - Stat MRCP - Stat LFT, CBC - PPI - IVF - CBC, LFT in am - Notify GI of results of MRCP - Supportive care - Further recommendations to follow based on results of above - Pt seen and examined by Dr. Vasquez and myself and this note is written on his behalf (Raven Olivares) Physician Comments Patient seen and examined Agree with above Continue with current supportive care Monitor labs MRCP showing probable choledocholithiasis We will plan on an ERCP tomorrow risks benefits and alternatives were discussed with both he and his and they are agreeable Patient will require a laparoscopic cholecystectomy at some point in the near future We will defer to attending physician to obtain a surgical consult (Burke Vasquez MD) Raven Olivares Nov 12, 2016 08:39 Burke Vasquez MD Nov 12, 2016 20:08
[2016-11-12] MEDS: SODIUM CHLORIDE 0.9% FLUSH 10 ML FLUSH IV FLUSH SCH ×2 (09:46→21:00)
--- NOTE | 2016-11-12 10:50 | RADRPT ---
EXAM DATE/TIME: 11/12/2016 09:49 This report includes an Addendum and supersedes previous reports for this exam. [facility] COMPARISON: US ABDOMEN - GALLBLADDER, November 12, 2016, 0:17. CT ABDOMEN & PELVIS W CONTRAST, November 09, 2016, 2:35 . INDICATIONS : Cholelithiasis. Abdominal pain starting 11/09/2016. MEDICAL HISTORY : None. SURGICAL HISTORY : Lasik. ENCOUNTER: Initial ACUITY: 4-6 days PAIN SCORE: 3/10 LOCATION: Right upper quadrant TECHNIQUE: Multiplanar, multisequence magnetic resonance imaging of the abdomen was performed. High-resolution 3D dataset was utilized to reconstruct maximum-intensity projection (MIP) images. FINDINGS: INTRAHEPATIC BILE DUCTS: Mildly prominent intrahepatic ducts diffusely. EXTRAHEPATIC BILE DUCTS: The common duct is mildly dilated measuring 9 mm proximally, 8 mm at its midportion, and 6 mm distall y. No filling defects to indicate calculi in the common duct. GALLBLADDER: Sludge is identified within the gallbladder neck. There is several 3 mm rounded filling defects in th e gallbladder neck on the axial T2 images only. This finding is not reproduced on any of the other MR CP images. LIVER: Normal size and signal intensity. No concerning liver lesion is identified on this non-contrast exam. PANCREAS: The main pancreatic duct is normal in size. There is no significant anatomical variant. Signal inte nsity is within normal limits. No mass is visualized on this non-contrast exam. OTHER: The remaining visualized structures demonstrate no acute abnormality on this non-contrast exam. CONCLUSION: 1. Mildly diffusely dilated common duct and mildly prominent intrahepatic ducts. No evidence of gino docholithiasis 2. Possible small calculi in the gallbladder neck seen only on a single axial T2-weighted image. Not confirmed on other images. Small amount of sludge in the gallbladder neck. No pericholecystic inflamm atory changes. Carlos Berger MD on November 12, 2016 at 10:31 Board Certified Radiologist. This report was verified electronically. ADDENDUM: Comparison to the CT abdomen examination shows a 4 mm calcific density in the region of the ampulla o f Vater/distal common duct indicating choledocholithiasis. This finding is not well-demonstrated on M DIRECTOR INSURANCE. A possible MRCP correlate for this finding is seen on the coronal T2 3-D source image #82. Carlos Berger MD on November 12, 2016 at 10:57 Board Certified Radiologist. This report was verified electronically.
[2016-11-12 11:11] LABS: AUTOMATED NEUTROPHIL # 5.3 TH/MM3 (1.8-7.7); BASOPHIL # 0.1 TH/MM3 (0-0.2); BASOPHIL % 1.1 % (0.0-2.0); EOSINOPHIL # 0.1 TH/MM3 (0-0.4); EOSINOPHIL % 1.3 % (0.0-4.0); HEMATOCRIT 43.6 % (39.0-51.0); HEMO FLAGS DIFF FINAL; LYMPH % 14.5 % (9.0-44.0); MEAN CELL VOLUME 83.4 FL (80.0-100.0); MEAN CORPUSCULAR HEMOGLOBIN 28.6 PG (27.0-34.0); MEAN CORPUSCULAR HGB CONC 34.3 % (32.0-36.0); MONO % 4.6 % (0.0-8.0); NEUT % 78.5 % (16.0-70.0); PLATELET COUNT 263 TH/MM3 (150-450); RED BLOOD COUNT 5.22 MIL/MM3 (4.50-5.90); RED CELL DISTRIBUTION WIDTH 13.6 % (11.6-17.2); WHITE BLOOD COUNT 6.8 TH/MM3 (4.0-11.0)
[2016-11-12 11:39] LABS: INDIRECT BILIRUBIN 1.9 MG/DL (0.0-0.8); TOTAL BILIRUBIN ADULT 4.2 MG/DL (0.2-1.0)
--- NOTE | 2016-11-12 17:23 | HHI.PR ---
Subjective Remarks This is a pleasant 31 y/o male with abdominal pain for 2 days, associated with nausea, status post MRCP I was called by senior benefits specialist Doctor Cralos Berger to tell me he found an stone on the ampulla of Vater, distal area of the common Bile Duct, GI specialist already following, and may need ERCP. he was re evaluated in the afternoon is stable and pain free. will be NPO for probable procedure tomorrow. Objective Vital Signs Date Time Temp Pulse Resp B/P Pulse Ox O2 Delivery O2 Flow Rate FiO2 11/12/16 15:22 68 16 120/71 98 11/12/16 12:01 76 14 130/60 98 Room Air 11/12/16 08:30 80 19 139/72 99 Room Air 11/12/16 03:40 63 18 120/60 99 Room Air 11/12/16 01:10 98 Room Air 11/11/16 20:43 97.8 73 16 132/73 100 Room Air Result Diagram: 11/12/16 1055 11/11/162229 Jack Lopez MD Nov 12, 2016 17:23 11/11/16 20:43 97.8 73 16 132/73 100 Room Air Result Diagram: 11/12/16 1055 11/11/160 Jack Lopez MD Nov 12, 2016 17:23
[2016-11-13 00:29] VITALS: BP 128/66; PULSE 71; RESP 16; TEMP 98.2; O2SAT 97
[2016-11-13] MEDS: PIPERACIL-TAZO 3.375 GM PREMIX 50 ML IV SCH ×4 (01:43→18:20)
[2016-11-13 04:30] VITALS: BP 118/60; PULSE 70; RESP 20; TEMP 97.5; O2SAT 98
[2016-11-13 05:26] LABS: AUTOMATED NEUTROPHIL # 4.9 TH/MM3 (1.8-7.7); BASOPHIL # 0.1 TH/MM3 (0-0.2); BASOPHIL % 0.7 % (0.0-2.0); EOSINOPHIL # 0.1 TH/MM3 (0-0.4); EOSINOPHIL % 2.1 % (0.0-4.0); HEMATOCRIT 43.8 % (39.0-51.0); HEMO FLAGS DIFF FINAL; LYMPH % 19.4 % (9.0-44.0); LYMPHOCYTE # 1.3 TH/MM3 (1.0-4.8); MEAN CELL VOLUME 83.9 FL (80.0-100.0); MEAN CORPUSCULAR HEMOGLOBIN 28.6 PG (27.0-34.0); MEAN CORPUSCULAR HGB CONC 34.1 % (32.0-36.0); MONO % 6.5 % (0.0-8.0); NEUT % 71.3 % (16.0-70.0); PLATELET COUNT 253 TH/MM3 (150-450); RED BLOOD COUNT 5.22 MIL/MM3 (4.50-5.90); RED CELL DISTRIBUTION WIDTH 13.8 % (11.6-17.2); WHITE BLOOD COUNT 6.9 TH/MM3 (4.0-11.0)
[2016-11-13 05:45] LABS: ALT (GPT) 280 U/L (12-78); ANION GAP 11 MEQ/L (5-15); AST (GOT) 66 U/L (15-37); BICARBONATE 22.7 MEQ/L (21.0-32.0); BLOOD UREA NITROGEN 14 MG/DL (7-18); CHLORIDE 105 MEQ/L (98-107); GLOMERULAR FILTRATION RATE 111 ML/MIN (>89); POTASSIUM 3.7 MEQ/L (3.5-5.1); SODIUM (NA) 139 MEQ/L (136-145)
[2016-11-13 05:47] LABS: ALKALINE PHOSPHATASE 216 U/L (45-117)
[2016-11-13] MEDS: SODIUM CHLOR 0.9% 1000 ML INJ 1,000 ML IV SCH ×2 (07:28→18:23)
[2016-11-13 08:00] VITALS: BP 117/73; PULSE 70; RESP 18; TEMP 97.5; O2SAT 93
[2016-11-13] MEDS: SODIUM CHLORIDE 0.9% FLUSH 10 ML FLUSH IV FLUSH SCH ×2 (09:00→21:00)
[2016-11-13 12:00] VITALS: BP 133/67; PULSE 77; RESP 20; TEMP 98.2; O2SAT 97
[2016-11-13] MEDS ORDERED: MIDAZOLAM HCL 2 MG/2 ML VIAL ONE (14:57)
[2016-11-13] MEDS ORDERED: IOHEXOL 350 MG/ML 100 ML BTL (for RAD DIAG) OTHER ONE (15:12)
[2016-11-13] MEDS ORDERED: PROPOFOL 200 MG/20 ML AMP IV ONE (15:30)
[2016-11-13 16:00] VITALS: BP 145/76; PULSE 72; RESP 16; TEMP 97.7; O2SAT 97
--- NOTE | 2016-11-13 16:03 | RADRPT ---
EXAM DATE/TIME: 11/13/2016 15:26 [facility] COMPARISON: No previous studies available for comparison. INDICATIONS : Evaluate for obstruction FLUORO TIME: 1.30 minutes IMAGE COUNT: 2 CONTRAST: Instilled by Ordering Physician MEDICAL HISTORY : Cholelithiasis. SURGICAL HISTORY : Lasik. ENCOUNTER: Subsequent ACUITY: 2 days PAIN SCORE: Non-responsive. LOCATION: Right upper quadrant FINDINGS: An ERCP was performed by the ordering physician. The images demonstrate a patent normal caliber common bile duct without stone CONCLUSION: ERCP as above. Malvin Rossi MD on November 13, 2016 at 16:01 Board Certified Radiologist. This report was verified electronically.
--- NOTE | 2016-11-13 16:18 | GIPROC ---
[facility] [address] [facility]. [facility], [address] ERCP PROCEDURE REPORT EXAM DATE: 11/13/2016 PATIENT NAME: Isak Napoles MR #: [id number] BIRTHDATE: 1985 ATTENDING: Burke Vasquez MD ORDER #: [id number] LINUX SERVER ENGINEER: Kike Mullen and Ghada Mcclelland STATUS: inpatient INDICATIONS: The patient is a 31 yr old male here for an ERCP due to Choledocholithiasis PROCEDURE PERFORMED: ERCP with sphincterotomy/papillotomy ERCP with removal of calculus/calculi MEDICATIONS: Per Anesthesia and None. CONSENT: The patient understands the risks and benefits of the procedure and understands that these risks include, but are not limited to: sedation, allergic reaction, infection, perforation and/or bleeding. Alternative means of evaluation and treatment include, among others: physical exam, x-rays, and/or surgical intervention. The patient elects to proceed with this endoscopic procedure. medical equipment was checked for proper function. Hand hygiene and appropriate measures for infection prevention was taken. After the risks, benefits and alternatives of the procedure were thoroughly explained, Informed was verified, confirmed and timeout was successfully executed by the treatment team. With the patient in left semi-prone position, medications were administered intravenously.The Pentax [id number] was passed from the mouth into the esophagus and further advanced from the esophagus into the stomach. From stomach scope was directed to the second portion of the duodenum. Major papilla was aligned with the duodenoscope. The scope position was confirmed fluoroscopically. Rest of the findings/therapeutics are given below. The scope was then completely withdrawn from the patient and the procedure completed. The pulse, BP, and O2 saturation were monitored and documented by the physician and the nursing staff throughout the entire procedure. The patient was cared for as planned according to standard protocol. The patient was then discharged to recovery in stable condition and with appropriate post procedure care. The ampulla was located the second portion of the duodenum. The ampulla appeared normal. A single filling defect was seen in the common bile duct. With guidewire in the bile duct, a biliary sphincterotomy was performed using the sphincterotome. Using a stone extraction balloon size 8 mm the bile duct was swept three times. A single stone was removed from the bile duct successfully. Bile duct cannulation was attempted using the sphinctertome with guidewire. Cannulation of the bile duct was performed with ease. Deep cannulation with the sphincterotome was successfully achieved. ADVERSE EVENT: There were no complications. IMPRESSIONS: 1. Normal appearing ampulla 2. S/p sphincterotomy and extract for choledocholithiasis. RECOMMENDATIONS: 1. Follow-up: GI clinic PRN 2. Continue with current supportive care Recommend elective laparoscopic cholecystectomy REPEAT EXAM: Burke Vasquez MD eSigned: Burke Vasquez MD 11/13/2016 4:18 PM cc:
--- NOTE | 2016-11-13 16:59 | HHI.PR ---
Subjective Remarks This is a pleasant 31 y/o male with abdominal pain for 2 days, associated with nausea, status post MRCP I was called by patient services specialist Doctor Carlos Berger to tell me he found an stone on the ampulla of Vater, distal area of the common Bile Duct, GI specialist already following, and may need ERCP. 11/13 Seen in his bedroom, and discussed with nurse Miss Delgado no new issues, he will go for ERCP later today. Objective Vital Signs Date Time Temp Pulse Resp B/P Pulse Ox O2 Delivery O2 Flow Rate FiO2 11/13/16 15:57 84 18 126/63 99 11/13/16 15:41 98.0 84 20 146/77 99 11/13/16 12:00 98.2 77 20 133/67 97 11/13/16 08:00 97.5 70 18 117/73 93 11/13/16 04:30 97.5 70 20 118/60 98 11/13/16 00:29 98.2 71 16 128/66 97 11/12/16 20:00 98.2 74 18 130/60 96 I/O 11/12/16 11/12/16 11/12/16 11/13/16 11/13/16 11/13/16 07:00 15:00 23:00 07:00 15:00 23:00 Intake Total 0 ml 1336 ml Balance 0 ml 1336 ml Intake Oral 0 ml IV Total 1336 ml # Voids 1 # Bowel Movements 0 Result Diagram: 11/13/16 0424 11/13/16 0424 Imaging Last Impressions GI Procedure 11/13/16 0000 Signed Impressions: Service Date/Time: Sunday, November 13, 2016 15:26 - CONCLUSION: ERCP as above. Malvin Rossi MD Gall Bladder Ultrasound 11/12/16 0000 Signed Impressions: Service Date/Time: October 00:17 - CONCLUSION: 1. Common bile duct mildly prominent at 8 mm but without evidence for choledocholithiasis. There is some sludge in the gallbladder neck. No discrete gallstones. No gallbladder wall thickening. No free fluid. Wolfgang Palma MD Cholangiopancreatography MRI 11/12/16 0000 Signed Impressions: Service Date/Time: October 09:49 - CONCLUSION: 1. Mildly diffusely dilated common duct and mildly prominent intrahepatic ducts. No evidence of choledocholithiasis 2. Possible small calculi in the gallbladder neck seen only on a single axial T2-weighted image. Not confirmed on other images. Small amount of sludge in the gallbladder neck. No pericholecystic inflammatory changes. Carlos Berger MD ADDENDUM: Comparison to the CT abdomen examination shows a 4 mm calcific density in the region of the ampulla of Vater/distal common duct indicating choledocholithiasis. This finding is not well-demonstrated on MRCP. A possible MRCP correlate for this finding is seen on the coronal T2 3-D source image #82. Carlos Berger MD Procedures ERCP done today. Other Results Laboratory Tests Test 11/11/16 11/12/16 11/13/16 22:30 10:55 04:24 Urine Color DARK-YELLOW Urine Turbidity CLEAR Urine pH 6.5 Urine Specific [place] 1.007 Urine Protein NEG mg/dL Urine Glucose (UA) NEG mg/dL Urine Ketones NEG mg/dL Urine Occult Blood NEG Urine Nitrite NEG Urine Bilirubin SMALL Urine Urobilinogen LESS THAN 2.0 MG/DL Urine Leukocyte Esterase NEG Urine RBC LESS THAN 1 /hpf Microscopic Urinalysis Comment CULT NOT INDICATED Lipase 260 U/L Urine Opiates Screen NEG Urine Barbiturates Screen NEG Urine Amphetamines Screen NEG Urine Benzodiazepines Screen NEG Urine Cocaine Screen NEG Urine Cannabinoids Screen NEG Direct Bilirubin 2.3 MG/DL Indirect Bilirubin 1.9 MG/DL White Blood Count 6.9 TH/MM3 Red Blood Count 5.22 MIL/MM3 Hemoglobin 14.9 GM/DL Hematocrit 43.8 % Mean Corpuscular Volume 83.9 FL Mean Corpuscular Hemoglobin 28.6 PG Mean Corpuscular Hemoglobin 34.1 % Concent Red Cell Distribution Width 13.8 % Platelet Count 253 TH/MM3 Mean Platelet Volume 8.3 FL Neutrophils (%) (Auto) 71.3 % Lymphocytes (%) (Auto) 19.4 % Monocytes (%) (Auto) 6.5 % Eosinophils (%) (Auto) 2.1 % Basophils (%) (Auto) 0.7 % Neutrophils # (Auto) 4.9 TH/MM3 Lymphocytes # (Auto) 1.3 TH/MM3 Monocytes # (Auto) 0.5 TH/MM3 Eosinophils # (Auto) 0.1 TH/MM3 Basophils # (Auto) 0.1 TH/MM3 CBC Comment DIFF FINAL Differential Comment Sodium Level 139 MEQ/L Potassium Level 3.7 MEQ/L Chloride Level 105 MEQ/L Carbon Dioxide Level 22.7 MEQ/L Anion Gap 11 MEQ/L Blood Urea Nitrogen 14 MG/DL Creatinine 0.81 MG/DL Estimat Glomerular Filtration 111 ML/MIN Rate Random Glucose 66 MG/DL Calcium Level 8.6 MG/DL Total Bilirubin 3.0 MG/DL Aspartate Amino Transf 66 U/L (AST/SGOT) Alanine Aminotransferase 280 U/L (ALT/SGPT) Alkaline Phosphatase 216 U/L Total Protein 7.1 GM/DL Albumin 3.5 GM/DL Hepatitis A IgM Antibody NEGATIVE Hepatitis B Surface Antigen NEGATIVE Hepatitis B Core IgM Antibody NEGATIVE Hepatitis C Antibody NEGATIVE Objective Remarks GENERAL: SKIN: Warm and dry. HEAD: Atraumatic. Normocephalic. EYES: Pupils equal and round. No scleral icterus. No injection or drainage. ENT: No nasal bleeding or discharge. Mucous membranes pink and moist. NECK: Trachea midline. No JVD. CARDIOVASCULAR: Regular rate and rhythm. RESPIRATORY: No accessory muscle use. Clear to auscultation. Breath sounds equal bilaterally. GASTROINTESTINAL: Abdomen soft, non-tender, nondistended. Hepatic and splenic margins not palpable. MUSCULOSKELETAL: Extremities without clubbing, cyanosis, or edema. No obvious deformities. NEUROLOGICAL: Awake and alert. No obvious cranial nerve deficits. Motor grossly within normal limits. Five out of 5 muscle strength in the arms and legs. Normal speech. PSYCHIATRIC: Appropriate mood and affect; insight and judgment normal. Medications and IVs Current Medications Medications (Trade) Dose Ordered Sig/Brad Route Start Time Stop Time Status Last Admin Sodium Chloride 2 ml 2 ml UNSCH PRN IV FLUSH 11/12/16 00:15 (NS 1000 ml Inj) 1,000 ml @ 100 mls/hr Q10H IV 11/12/16 01:28 11/12/16 21:28 (NS Flush) 2 ml BID IV FLUSH 11/12/16 09:00 11/12/16 09:46 (Tylenol) 650 mg Q4H PRN PO 11/12/16 01:30 (Zofran Inj) 4 mg Q6H PRN IVP 11/12/16 01:30 (Milk Of Magnesia Liq) 30 ml Q12H PRN PO 11/12/16 01:30 (Senokot) 17.2 mg Q12H PRN PO 11/12/16 01:30 Naloxone HCl 0.4 mg 0.4 mg UNSCH PRN IV 11/12/16 01:30 (Zosyn 3.375 Gm Premix) 50 ml @ 100 mls/hr Q6H IV 11/12/16 07:00 11/13/16 12:16 A/P Problem List: (1) Cholelithiasis ICD Code: K80.20 (2) Abdominal pain ICD Code: R10.9 (3) Elevated LFTs ICD Code: R94.5 Assessment and Plan 1. Acute abdominal pain secondary to Cholelithiasis status post ERCP with sphincterotomy/papillotomy and removal of calculus/calculi patient seen in his bedroom previous to procedure stable will follow GI specialist recommendations continue present care by now. Discharge Planning Expected for later today or in am tomorrow. Jack Lopez MD Nov 13, 2016 16:59
[2016-11-13 20:00] VITALS: BP 127/70; PULSE 82; RESP 18; TEMP 98; O2SAT 92
[2016-11-14] VITALS: BP 117/66; PULSE 68; RESP 16; TEMP 97.7; O2SAT 97
[2016-11-14] MEDS: PIPERACIL-TAZO 3.375 GM PREMIX 50 ML IV SCH ×3 (01:36→12:17)
[2016-11-14] MEDS: SODIUM CHLOR 0.9% 1000 ML INJ 1,000 ML IV SCH (03:28)
[2016-11-14 04:00] VITALS: BP 107/59; PULSE 82; RESP 18; TEMP 98; O2SAT 97
[2016-11-14 08:00] VITALS: BP 121/80; PULSE 66; RESP 18; TEMP 97.3; O2SAT 98
[2016-11-14 09:26] LABS: MEAN CELL VOLUME 84.3 FL (80.0-100.0); MEAN CORPUSCULAR HEMOGLOBIN 27.8 PG (27.0-34.0); PLATELET COUNT 259 TH/MM3 (150-450); RED BLOOD COUNT 5.47 MIL/MM3 (4.50-5.90); RED CELL DISTRIBUTION WIDTH 13.7 % (11.6-17.2); REVIEW FLAG FINAL
--- NOTE | 2016-11-14 11:39 | HHI.PR ---
Subjective Remarks This is a pleasant 31 y/o male with abdominal pain for 2 days, associated with nausea, status post MRCP I was called by environmental communications specialist Doctor Carlos Berger to tell me he found an stone on the ampulla of Vater, distal area of the common Bile Duct, GI specialist already following, and may need ERCP. 11/13 Seen in his bedroom, and discussed with nurse Miss Delgado no new issues, he will go for ERCP later today. 11/14 Patient stable seen in his bedroom awaiting for final recommendations by GI specialist for discharge no nausea, vomit or diarrhea, no signs of infection. okay to discharge from Medicine standpoint. Objective Vital Signs Date Time Temp Pulse Resp B/P Pulse Ox O2 Delivery O2 Flow Rate FiO2 11/14/16 08:00 97.3 66 18 121/80 98 11/14/16 04:00 98.0 82 18 107/59 97 11/14/16 00:00 97.7 68 16 117/66 97 11/13/16 20:00 98.0 82 18 127/70 92 11/13/16 16:00 97.7 72 16 145/76 97 11/13/16 15:57 84 18 126/63 99 11/13/16 15:41 98.0 84 20 146/77 99 11/13/16 12:00 98.2 77 20 133/67 97 I/O 11/13/16 11/13/16 11/13/16 11/14/16 11/14/16 11/14/16 07:00 15:00 23:00 07:00 15:00 23:00 Intake Total 1336 ml 0 ml 240 ml 2185 ml Balance 1336 ml 0 ml 240 ml 2185 ml Intake Oral 0 ml 240 ml 100 ml IV Total 1336 ml 2085 ml # Voids 1 0 1 # Bowel Movements 0 0 0 Result Diagram: 11/14/16 0756 11/13/16 0424 Imaging Last Impressions GI Procedure 11/13/16 0000 Signed Impressions: Service Date/Time: Sunday, November 13, 2016 15:26 - CONCLUSION: ERCP as above. Malvin Rossi MD Gall Bladder Ultrasound 11/12/16 0000 Signed Impressions: Service Date/Time: October 00:17 - CONCLUSION: 1. Common bile duct mildly prominent at 8 mm but without evidence for choledocholithiasis. There is some sludge in the gallbladder neck. No discrete gallstones. No gallbladder wall thickening. No free fluid. Wolfgang Palma MD Cholangiopancreatography MRI 11/12/16 0000 Signed Impressions: Service Date/Time: October 09:49 - CONCLUSION: 1. Mildly diffusely dilated common duct and mildly prominent intrahepatic ducts. No evidence of choledocholithiasis 2. Possible small calculi in the gallbladder neck seen only on a single axial T2-weighted image. Not confirmed on other images. Small amount of sludge in the gallbladder neck. No pericholecystic inflammatory changes. Carlos Berger MD ADDENDUM: Comparison to the CT abdomen examination shows a 4 mm calcific density in the region of the ampulla of Vater/distal common duct indicating choledocholithiasis. This finding is not well-demonstrated on MRCP. A possible MRCP correlate for this finding is seen on the coronal T2 3-D source image #82. Carlos Berger MD Procedures ERCP done today. Other Results Laboratory Tests Test 11/11/16 11/12/16 11/13/16 11/14/16 22:30 10:55 04:24 07:56 Urine Color DARK-YELLOW Urine Turbidity CLEAR Urine pH 6.5 Urine Specific [place] 1.007 Urine Protein NEG mg/dL Urine Glucose (UA) NEG mg/dL Urine Ketones NEG mg/dL Urine Occult Blood NEG Urine Nitrite NEG Urine Bilirubin SMALL Urine Urobilinogen LESS THAN 2.0 MG/DL Urine Leukocyte Esterase NEG Urine RBC LESS THAN 1 /hpf Microscopic Urinalysis Comment CULT NOT INDICATED Lipase 260 U/L Urine Opiates Screen NEG Urine Barbiturates Screen NEG Urine Amphetamines Screen NEG Urine Benzodiazepines Screen NEG Urine Cocaine Screen NEG Urine Cannabinoids Screen NEG Direct Bilirubin 2.3 MG/DL Indirect Bilirubin 1.9 MG/DL Neutrophils (%) (Auto) 71.3 % Lymphocytes (%) (Auto) 19.4 % Monocytes (%) (Auto) 6.5 % Eosinophils (%) (Auto) 2.1 % Basophils (%) (Auto) 0.7 % Neutrophils # (Auto) 4.9 TH/MM3 Lymphocytes # (Auto) 1.3 TH/MM3 Monocytes # (Auto) 0.5 TH/MM3 Eosinophils # (Auto) 0.1 TH/MM3 Basophils # (Auto) 0.1 TH/MM3 CBC Comment DIFF FINAL Differential Comment Sodium Level 139 MEQ/L Potassium Level 3.7 MEQ/L Chloride Level 105 MEQ/L Carbon Dioxide Level 22.7 MEQ/L Anion Gap 11 MEQ/L Blood Urea Nitrogen 14 MG/DL Creatinine 0.81 MG/DL Estimat Glomerular Filtration 111 ML/MIN Rate Random Glucose 66 MG/DL Calcium Level 8.6 MG/DL Total Bilirubin 3.0 MG/DL Aspartate Amino Transf 66 U/L (AST/SGOT) Alanine Aminotransferase 280 U/L (ALT/SGPT) Alkaline Phosphatase 216 U/L Total Protein 7.1 GM/DL Albumin 3.5 GM/DL Hepatitis A IgM Antibody NEGATIVE Hepatitis B Surface Antigen NEGATIVE Hepatitis B Core IgM Antibody NEGATIVE Hepatitis C Antibody NEGATIVE White Blood Count 9.0 TH/MM3 Red Blood Count 5.47 MIL/MM3 Hemoglobin 15.2 GM/DL Hematocrit 46.0 % Mean Corpuscular Volume 84.3 FL Mean Corpuscular Hemoglobin 27.8 PG Mean Corpuscular Hemoglobin 33.0 % Concent Red Cell Distribution Width 13.7 % Platelet Count 259 TH/MM3 Mean Platelet Volume 8.4 FL Objective Remarks GENERAL: SKIN: Warm and dry. HEAD: Atraumatic. Normocephalic. EYES: Pupils equal and round. No scleral icterus. No injection or drainage. ENT: No nasal bleeding or discharge. Mucous membranes pink and moist. NECK: Trachea midline. No JVD. CARDIOVASCULAR: Regular rate and rhythm. RESPIRATORY: No accessory muscle use. Clear to auscultation. Breath sounds equal bilaterally. GASTROINTESTINAL: Abdomen soft, non-tender, nondistended. Hepatic and splenic margins not palpable. MUSCULOSKELETAL: Extremities without clubbing, cyanosis, or edema. No obvious deformities. NEUROLOGICAL: Awake and alert. No obvious cranial nerve deficits. Motor grossly within normal limits. Five out of 5 muscle strength in the arms and legs. Normal speech. PSYCHIATRIC: Appropriate mood and affect; insight and judgment normal. Medications and IVs Current Medications Medications (Trade) Dose Ordered Sig/Brad Route Start Time Stop Time Status Last Admin Sodium Chloride 2 ml 2 ml UNSCH PRN IV FLUSH 11/12/16 00:15 (NS 1000 ml Inj) 1,000 ml @ 100 mls/hr Q10H IV 11/12/16 01:28 11/13/16 18:23 (NS Flush) 2 ml BID IV FLUSH 11/12/16 09:00 11/12/16 09:46 (Tylenol) 650 mg Q4H PRN PO 11/12/16 01:30 (Zofran Inj) 4 mg Q6H PRN IVP 11/12/16 01:30 (Milk Of Magnesia Liq) 30 ml Q12H PRN PO 11/12/16 01:30 (Senokot) 17.2 mg Q12H PRN PO 11/12/16 01:30 Naloxone HCl 0.4 mg 0.4 mg UNSCH PRN IV 11/12/16 01:30 (Zosyn 3.375 Gm Premix) 50 ml @ 100 mls/hr Q6H IV 11/12/16 07:00 11/14/16 05:40 A/P Problem List: (1) Cholelithiasis ICD Code: K80.20 (2) Abdominal pain ICD Code: R10.9 (3) Elevated LFTs ICD Code: R94.5 Assessment and Plan 1. Acute abdominal pain secondary to Cholelithiasis status post ERCP with sphincterotomy/papillotomy and removal of calculus/calculi 2. elevated Liver enzymes secondary to #1 Improving, hepatitis panel negative. patient seen in his bedroom No complaint awaiting final recommendations by GI specialist for discharge. advance diet as tolerated. Discharge Planning Okay to discharge home by Medicine. Jack Lopez MD Nov 14, 2016 11:39
[2016-11-14 11:43] LABS: ALKALINE PHOSPHATASE 208 U/L (45-117); ALT (GPT) 232 U/L (12-78); ANION GAP 10 MEQ/L (5-15); AST (GOT) 49 U/L (15-37); BICARBONATE 26.1 MEQ/L (21.0-32.0); BLOOD UREA NITROGEN 7 MG/DL (7-18); CHLORIDE 103 MEQ/L (98-107); GLOMERULAR FILTRATION RATE 116 ML/MIN (>89); POTASSIUM 3.5 MEQ/L (3.5-5.1); SODIUM (NA) 139 MEQ/L (136-145); TOTAL BILIRUBIN ADULT 1.8 MG/DL (0.2-1.0)
[2016-11-14 12:00] VITALS: BP 121/71; PULSE 67; RESP 18; TEMP 97.9; O2SAT 97
[2016-11-14 16:00] VITALS: BP 132/73; PULSE 72; RESP 18; TEMP 97.6; O2SAT 98
[2016-11-14] MEDS ORDERED: PROT40TA PO (16:52)
--- NOTE | 2016-11-14 16:56 | HHI.DS ---
Discharge Summary Admission Date Nov 12, 2016 at 01:33 Discharge Date: Nov 14, 2016 Admitting Diagnosis Hyperbiliribinemia, Elevated LFTs (1) Elevated LFTs ICD Code: R94.5 Diagnosis: Principal (2) Abdominal pain ICD Code: R10.9 Diagnosis: Principal (3) Cholelithiasis ICD Code: K80.20 Diagnosis: Principal Procedures MRCP, ERCP Sphincterotomy and stone removal. Brief History - From Admission 31 year old with no medical history presented to the Ed with complaints of abdominal pain for 2 days. Patient states on Wednesday he began to have intermittent sharp cramping in his mid abdominal region with associated nausea. At first he thought it was gas but then it continued to increase in intensity. Patient denies eating a fatty meal, states he only was eating toast this morning. He denies any fever, chills, chest pain or sob. He also denies any vomiting, diarrhea or constipation. Patient does not have a PCP. CBC/BMP: 11/14/16 0756 11/14/16 0756 Significant Findings Laboratory Tests Test 11/11/16 11/12/16 11/13/16 11/14/16 22:30 10:55 04:24 07:56 Neutrophils (%) (Auto) 76.1 % 78.5 % 71.3 % (16.0-70.0) (16.0-70.0) (16.0-70.0) Urine Color DARK-YELLOW (YELLW/STRAW) Urine Bilirubin SMALL (NEG) Total Bilirubin 5.8 MG/DL 4.2 MG/DL 3.0 MG/DL 1.8 MG/DL (0.2-1.0) (0.2-1.0) (0.2-1.0) (0.2-1.0) Aspartate Amino Transf 178 U/L (15-37) 112 U/L (15-37) 66 U/L (15-37) 49 U/L (15 -37) (AST/SGOT) Alanine Aminotransferase 438 U/L (12-78) 367 U/L (12-78) 280 U/L (12-78) 232 U/ L (12-78) (ALT/SGPT) Alkaline Phosphatase 241 U/L 228 U/L 216 U/L 208 U/L (45-117) (45-117) (45-117) (45-117) Direct Bilirubin 2.3 MG/DL (0.0-0.2) Indirect Bilirubin 1.9 MG/DL (0.0-0.8) Random Glucose 66 MG/DL (74-106) Imaging Last Impressions GI Procedure 11/13/16 0000 Signed Impressions: Service Date/Time: Sunday, November 13, 2016 15:26 - CONCLUSION: ERCP as above. Malvin Rossi MD Gall Bladder Ultrasound 11/12/16 0000 Signed Impressions: Service Date/Time: October 00:17 - CONCLUSION: 1. Common bile duct mildly prominent at 8 mm but without evidence for choledocholithiasis. There is some sludge in the gallbladder neck. No discrete gallstones. No gallbladder wall thickening. No free fluid. Wolfgang Palma MD Cholangiopancreatography MRI 11/12/16 0000 Signed Impressions: Service Date/Time: October 09:49 - CONCLUSION: 1. Mildly diffusely dilated common duct and mildly prominent intrahepatic ducts. No evidence of choledocholithiasis 2. Possible small calculi in the gallbladder neck seen only on a single axial T2-weighted image. Not confirmed on other images. Small amount of sludge in the gallbladder neck. No pericholecystic inflammatory changes. Carlos Berger MD ADDENDUM: Comparison to the CT abdomen examination shows a 4 mm calcific density in the region of the ampulla of Vater/distal common duct indicating choledocholithiasis. This finding is not well-demonstrated on MRCP. A possible MRCP correlate for this finding is seen on the coronal T2 3-D source image #82. Carlos Berger MD PE at Discharge GENERAL: SKIN: Warm and dry. HEAD: Atraumatic. Normocephalic. EYES: Pupils equal and round. No scleral icterus. No injection or drainage. ENT: No nasal bleeding or discharge. Mucous membranes pink and moist. NECK: Trachea midline. No JVD. CARDIOVASCULAR: Regular rate and rhythm. RESPIRATORY: No accessory muscle use. Clear to auscultation. Breath sounds equal bilaterally. GASTROINTESTINAL: Abdomen soft, non-tender, nondistended. Hepatic and splenic margins not palpable. MUSCULOSKELETAL: Extremities without clubbing, cyanosis, or edema. No obvious deformities. NEUROLOGICAL: Awake and alert. No obvious cranial nerve deficits. Motor grossly within normal limits. Five out of 5 muscle strength in the arms and legs. Normal speech. PSYCHIATRIC: Appropriate mood and affect; insight and judgment normal. Hospital Course This is a pleasant 31 y/o male with abdominal pain for 2 days, associated with nausea, status post MRCP I was called by international marketing specialist Doctor Carlos Berger to tell me he found an stone on the ampulla of Vater, distal area of the common Bile Duct, GI specialist already following, and may need ERCP. 11/13 Seen in his bedroom, and discussed with nurse Miss Delgado no new issues, he will go for ERCP later today. 11/14 Patient stable seen in his bedroom awaiting for final recommendations by GI specialist for discharge no nausea, vomit or diarrhea, no signs of infection. okay to discharge from Medicine standpoint. Assessment and Plan 1. Acute abdominal pain secondary to Cholelithiasis status post ERCP with sphincterotomy/papillotomy and removal of calculus/calculi, seen by his primary GI specialist recommended for discharge after tolerating diet. 2. elevated Liver enzymes secondary to #1 Improving, hepatitis panel negative. patient seen in his bedroom No complaint Discharge Planning Okay to discharge home by Medicine and GI specialist. Pt Condition on Discharge: Good Discharge Disposition: Discharge Home Discharge Time: <= 30 minutes Discharge Instructions DIET: Follow Instructions for: Low Fat Diet Activities you can perform: Regular-No Restrictions Jack Lopez MD Nov 14, 2016 16:56
--- NOTE | 2016-11-14 18:02 | HHI.GIFU ---
Subjective Remarks Resting in bed. Tolerating diet. No n/v. Mild sore throat,but no abdominal pain. Objective Vitals I&O Vital Signs Date Time Temp Pulse Resp B/P Pulse Ox O2 Delivery O2 Flow Rate FiO2 11/14/16 16:00 97.6 72 18 132/73 98 11/14/16 12:00 97.9 67 18 121/71 97 11/14/16 08:00 97.3 66 18 121/80 98 11/14/16 04:00 98.0 82 18 107/59 97 11/14/16 00:00 97.7 68 16 117/66 97 11/13/16 20:00 98.0 82 18 127/70 92 I/O 11/13/16 11/13/16 11/13/16 11/14/16 11/14/16 11/14/16 07:00 15:00 23:00 07:00 15:00 23:00 Intake Total 1336 ml 0 ml 240 ml 2185 ml 2000 ml Balance 1336 ml 0 ml 240 ml 2185 ml 2000 ml Intake Oral 0 ml 240 ml 100 ml 2000 ml IV Total 1336 ml 2085 ml # Voids 1 0 1 3 # Bowel Movements 0 0 0 0 Laboratory Laboratory Tests Test 11/14/16 07:56 White Blood Count 9.0 Red Blood Count 5.47 Hemoglobin 15.2 Hematocrit 46.0 Mean Corpuscular Volume 84.3 Mean Corpuscular Hemoglobin 27.8 Mean Corpuscular Hemoglobin 33.0 Concent Red Cell Distribution Width 13.7 Platelet Count 259 Mean Platelet Volume 8.4 Sodium Level 139 Potassium Level 3.5 Chloride Level 103 Carbon Dioxide Level 26.1 Anion Gap 10 Blood Urea Nitrogen 7 Creatinine 0.78 Estimat Glomerular Filtration 116 Rate Random Glucose 87 Calcium Level 9.4 Total Bilirubin 1.8 Aspartate Amino Transf 49 (AST/SGOT) Alanine Aminotransferase 232 (ALT/SGPT) Alkaline Phosphatase 208 Total Protein 7.5 Albumin 3.7 Imaging Last Impressions GI Procedure 11/13/16 0000 Signed Impressions: Service Date/Time: Sunday, November 13, 2016 15:26 - CONCLUSION: ERCP as above. Malvin Rossi MD Gall Bladder Ultrasound 11/12/16 0000 Signed Impressions: Service Date/Time: October 00:17 - CONCLUSION: 1. Common bile duct mildly prominent at 8 mm but without evidence for choledocholithiasis. There is some sludge in the gallbladder neck. No discrete gallstones. No gallbladder wall thickening. No free fluid. Wolfgang Palma MD Cholangiopancreatography MRI 11/12/16 0000 Signed Impressions: Service Date/Time: October 09:49 - CONCLUSION: 1. Mildly diffusely dilated common duct and mildly prominent intrahepatic ducts. No evidence of choledocholithiasis 2. Possible small calculi in the gallbladder neck seen only on a single axial T2-weighted image. Not confirmed on other images. Small amount of sludge in the gallbladder neck. No pericholecystic inflammatory changes. Carlos Berger MD ADDENDUM: Comparison to the CT abdomen examination shows a 4 mm calcific density in the region of the ampulla of Vater/distal common duct indicating choledocholithiasis. This finding is not well-demonstrated on MRCP. A possible MRCP correlate for this finding is seen on the coronal T2 3-D source image #82. Carlos Berger MD Physical Exam HEENT: Normocephalic; atraumatic; no jaundice. Throat is clear. NECK: Neck is supple, no JVD, no lymphadenopathy. CHEST: Chest is clear to auscultation and percussion. CARDIAC: Regular rate and rhythm with no murmur gallop or rubs. ABDOMEN: Soft, nondistended, nontender; no hepatosplenomegaly; bowel sounds are present in all four quadrants. EXTREMITIES: No clubbing, cyanosis, or edema. SKIN: Normal; no rash; no jaundice. INSTRUCTIONAL WRITER: No focal deficits; alert and oriented times three. Assessment and Plan Plan ASSESSMENT: - Choledocholithiasis/Abdominal pain. Gall Bladder Ultrasound (11/12/16)---> 1. Common bile duct mildly prominent at 8 mm but without evidence for choledocholithiasis. There is some sludge in the gallbladder neck. No discrete gallstones. No gallbladder wall thickening. No free fluid. MRCP (11/12/16)------> 1. Mildly diffusely dilated common duct and mildly prominent intrahepatic ducts. No evidence of choledocholithiasis 2. Possible small calculi in the gallbladder neck seen only on a single axial T2-weighted image. Not confirmed on other images. Small amount of sludge in the gallbladder neck. No pericholecystic inflammatory changes. Carlos Berger MD ADDENDUM: Comparison to the CT abdomen examination shows a 4 mm calcific density in the region of the ampulla of Vater/distal common duct indicating choledocholithiasis. This finding is not well-demonstrated on MRCP. A possible MRCP correlate for this finding is seen on the coronal T2 3-D source image #82. S/P ERCP (11/14/16)----> 1. Normal appearing ampulla 2. S/p sphincterotomy and extract for choledocholithiasis. Clinically improved. LFTs improving. Tolerating diet. Recommend surgical evaluation for elective lap. cholecystectomy so he will have someone to follow up with as outpatient. - Cholelithiasis. Recommend GS evaluation. - Elevated LFTs secondary to choledocholithiasis. LFTs improving. T. Bili 1.8 , AST 49, ALT 233, Alk phosph 208. PLAN: - Low fat diet - PPI - Recommend GS evaluation prior to d/c. Pt actually has discharge order and therefore will defer to primary. D/W nurse. - Pt seen and examined by Dr. Alcazar and myself and this note is written on his behalf Raven Olivares Nov 14, 2016 18:02
== END 2016-11-14 19:30 | disposition home or self-care (01) | DRG 446 ==
LOC: NEPC 20:41 → NEDA 11-12 01:33 → NEDH 11-12 06:49 → N04B 11-12 15:25
PROVIDERS: ADMIT Internal Medicine; ATTEND Internal Medicine
PROC: 0FC98ZZ Extirpation of Matter from Common Bile Duct, Via Natural or Artificial Opening Endoscopic (ICD-10-PCS; principal; 2016-11-13 14:30)
DX: K80.70 Calculus of gallbladder and bile duct without cholecystitis without obstruction (principal); J02.9 Acute pharyngitis, unspecified; Z87.891 Personal history of nicotine dependence
CPT/HCPCS: 74181; 74330; 76377; 76705; 80053; 80074; 80076; 80307; 81001; 83690; 85025; 85027; C1769; J1170; J2250; J2405; J2543; J3010; J7030; Q9967